=== PATIENT | male | born 2000 | race Two or more races ===

== ENCOUNTER 2023-11-20 22:57 | Emergency (ER) | payer MEDICAID ==
[~2023-11-20] VITALS: Ht 172.7 cm; Wt 70.8 kg
[~2023-11-20 22:57] MED LIST: ALUMCHW6 PO; OMEP20TA PO; PROC10TA6 PO
[2023-11-20 23:28] VITALS: BP 123/72; PULSE 102; RESP 20; TEMP 98.2; O2SAT 94
[2023-11-21] MEDS: SODIUM CHLORIDE 0.9% 1,000 ML IVB ONE (00:26)
[2023-11-21 00:38] LABS: Basophils # (auto) 0 10 ^3/uL (0-0.2); Basophils % (auto) 0.3 % (0.0-2.0); Eosinophils # (auto) 0 10 ^3/uL (0-0.8); Hematocrit 46.9 % (41.0-53.0); Hemoglobin 15.6 g/dL (13.5-17.5); Lymphocytes # (auto) 1.5 10 ^3/uL (0.4-5.4); Lymphocytes % (auto) 8.7 % (10.0-50.0); Mean Corpuscular Hemoglobin 28.4 pg (28.0-32.0); Mean Corpuscular Hgb Conc. 33.3 g/dL (32.0-36.0); Mean Corpuscular Volume 85.5 fL (80.0-100.0); Monocytes # (auto) 1.2 10 ^3/uL (0-1.3); Monocytes % (auto) 7.2 % (0.0-12.0); Neutrophils # (auto) 14.5 10 ^3/uL (1.6-8.6); Neutrophils % (auto) 83.8 % (37.0-80.0); Red Blood Cells 5.49 10^6/uL (4.5-5.90); Red Cell Distribution Width 13.2 % (11.8-14.3); White Blood Cell 17.3 10^3/uL (4.4-10.8)
[2023-11-21 00:41] LABS: Urine Bacteria None Seen /hpf (None Seen); Urine Blood TRACE /uL (Negative); Urine Clarity Turbid (Clear); Urine Color Yellow (Yellow); Urine Hyaline Cast FEW /lpf (0 - 2); Urine Mucus FEW (None Seen); Urine Protein, UAD 2+ (Negative); Urine Specific Gravity 1.028 (1.001-1.035); Urine Urobilinogen Normal (Negative); Urine WBC 32 /hpf (0 - 3); Urine pH 7.5 (5.0-9.0)
[2023-11-21 00:48] LABS: Alanine Aminotransferase 13 U/L (7-40); Albumin 5.1 g/dL (3.2-4.8); Alkaline Phosphatase 67 U/L (46-116); Anion Gap 11 (5-15); Aspartate Aminotransferase 9 U/L (13-40); BUN/Creatinine Ratio 12.6 (10.0-20.0); Bilirubin, Total 0.9 mg/dL (0.2-1.0); Blood Urea Nitrogen 12 mg/dL (9-23); Calcium 10.6 mg/dL (8.7-10.4); Carbon Dioxide 25 mmol/L (20-30); Chloride 104 mmol/L (98-107); Glucose 105 mg/dL (74-106); Lipase 28 U/L (12-53); Potassium 3.3 mmol/L (3.5-5.1); Sodium 140 mmol/L (136-145)
[2023-11-21] MEDS: KETOROLAC TROMETH 30 MG/ML 1ML VIAL IV ONE (00:55)
[2023-11-21] MEDS: ONDANSETRON HCL 4 MG/2 ML VIAL IV ONE (00:56)
[2023-11-21] MEDS: PIPERACILLIN-TAZOB 3.375GM 100 ML IV ONE (01:21)
[2023-11-21 01:23] LABS: Amphetamine Screen, Urine Neg (NEGATIVE); Barbiturate Scree,Urine Neg (NEGATIVE); Benzodiazephine Screen, Urine Neg (NEGATIVE); Cocaine Screen, Urine Neg (NEGATIVE)
[2023-11-21 01:24] LABS: Cannabinoid Screen, Urine Pos (NEGATIVE); Opiate Scree,Urine Neg (NEGATIVE); Phencyclidine Screen, Urine Neg (NEGATIVE)
[2023-11-21] MEDS ORDERED: ACET500T58 PO (02:06)
[2023-11-21] MEDS ORDERED: PHEN95TA13 PO (02:41)
[2023-11-21] MEDS ORDERED: DOXY-286 PO (02:41)
[2023-11-21] MEDS: METOCLOPRAMIDE HCL 5MG/ml INJ 2ml VIAL IM ONE (02:57)
[2023-11-21] MEDS: HYDROcodone-ACET 10/325MG TAB PO ONE (02:57)
[2023-11-21] MEDS ORDERED: METO-281 PO (03:06)
== END 2023-11-21 03:04 | disposition home or self-care (01) ==
LOC: ER 22:57
DX: N39.0 Urinary tract infection, site not specified (principal); F12.10 Cannabis abuse, uncomplicated; Z79.899 Other long term (current) drug therapy
CPT/HCPCS: 36415; 74176; 80053; 80307; 81001; 83690; 84484; 85025; 96361; 96365; 96372; 96375; 99285; J1885; J2405; J2543; J2765; J7030